=== PATIENT | male | born 1985 | race Caucasian/White ===

== ENCOUNTER 2020-04-06 17:19 | Emergency (ER) | payer OTHER ==
[2020-04-06] MEDS ORDERED: HYDROCODONE/ACETAMINOPHEN 10-325 MG TABLET PO ONE (17:30)
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
[2020-04-06] MEDS ORDERED: ACETAMINOPHEN 325 MG TABLET PO ONE (17:37)
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
[2020-04-06] MEDS ORDERED: NORMAL SALINE 1000 ML 1,000 ML IV ONE (19:26)
[2020-04-06] MEDS ORDERED: CEFAZOLIN 2 GM/D5W RTU 2 GM/50 ML RTUPB IV ONE (19:27)
[2020-04-06] MEDS ORDERED: PROMETHAZINE HCL INJ 25 MG/1 ML VIAL IV ONE (19:27)
[2020-04-06] MEDS ORDERED: FENTANYL CITRATE INJ/PF 100 MCG/2 ML AMPUL IV ONE (19:27)
[2020-04-06] MEDS ORDERED: CEFTRIAXONE INJ 1000 MG VIAL IV ONE (19:55)
[2020-04-06] MEDS ORDERED: KETOROLAC TROMETHAMINE INJ/PF 30 MG/1 ML SDV IV ONE (22:24)
[2020-04-06 22:35] VITALS: BP 127/78
== END 2020-04-06 22:36 | disposition left against medical advice (07) ==
LOC: ER 17:19
DX: S02.32XA Fracture of orbital floor, left side, initial encounter for closed fracture (principal); R51 Headache; H11.32 Conjunctival hemorrhage, left eye; Y04.2XXA Assault by strike against or bumped into by another person, initial encounter; Y92.832 Beach as the place of occurrence of the external cause
CPT/HCPCS: 99291; 99292; 96361; 96375; 96365; 36415; 87040; 70486; J3010; J1885; J2550; J0696; J7030